=== PATIENT | female | born 1995 | race Caucasian/White ===

== ENCOUNTER 2017-10-25 12:58 | Observation (INO) | payer MEDICAID ==
[2017-10-25] MEDS ORDERED: Acetaminophen 325 MG Tab PO ONE (15:12)
[2017-10-25] MEDS ORDERED: Acetaminophen 325 MG Tab PO PRN (15:52)
[2017-10-25] MEDS ORDERED: Ondansetron 4 MG Tab.DIS PO PRN (15:53)
[2017-10-25] MEDS ORDERED: Magnesium Sulfate/Water 2 GM in Premix Bag 1 BAG IV ONE (19:40)
[2017-10-25] MEDS ORDERED: Magnesium Sulfate/Water 40 GM/1,000 ML BAG ONE (19:40)
[2017-10-25] MEDS ORDERED: Magnesium Sulfate/Water 50 ML ONE (19:40)
[2017-10-25] MEDS ORDERED: Magnesium Sulfate/Water 100 ML ONE (19:40)
[2017-10-25] MEDS ORDERED: Magnesium Sulfate/Water 4 GM in Premix Bag 1 BAG IV ONE (19:40)
[2017-10-25] MEDS ORDERED: Lactated Ringers 1,000 ML ONE (19:41)
[2017-10-25] MEDS ORDERED: Lactated Ringers 1,000 ML IV SCH (20:15)
[2017-10-25] MEDS ORDERED: Magnesium Sulfate/Water 40 GM/1,000 ML BAG IV SCH (20:45)
--- NOTE | 2017-10-25 22:14 | PCM.LDHP ---
L&D History of Present Illness - General Date of Service: 10/25/17 Admit Problem/Dx: Patient Status Order with Admit Dx/Problem 10/25/17 13:10 Patient Status [ADT] Routine 10/25/17 15:50 Patient Status [ADT] Routine Admission Diagnosis/Problem Admission Diagnosis/Problem complications Source of Information: Patient History Limitations: Reports: No Limitations - History of Present Illness Introduction:: 22 year old female at 35w2 here from [place] for a second opinion after being diagnosed there with mild pre-ecclampsia. Review of records reveals that she had normal blood pressures until 33 weeks of at which point she had some mild range pressures in clinic with occasional blood pressures in the 150/100s range. Labetolol was initiated at that time and plans were made for 37 week delivery. Her blood pressures became harder to control on labetolol and they increased the dose. Additionally she started having visual changes and headaches. BMZ Saturday and Saturday of this week. Otherwise she has had uncomplicated care. Pain Score: 7 Improves with: Reports: None Worsens with: Reports: None Associated Symptoms: Reports: N - Related Data Allergies/Adverse Reactions: Allergies Allergy/AdvReac Type Severity Reaction Status Date / Time No Known Allergies Allergy Verified 10/17/17 23:04 CDT Home Medications: Home Meds PNV #116/Iron Fumarate/FA/DHA [Expecta Combo Pack] 1 tab PO DAILY 10/02 [History] Ferrous Sulfate [Ferosul] 1 tab PO DAILY 10/17/17 [History] Past Medical History Cardiovascular History: Reports: Other (See Below) Other Cardiovascular History: Mitral valve prolapse [employer] History: Reports: Endometriosis, Social & Family History - Family History Musculoskeletal: Reports: Muscular Dystrophy - Tobacco Use Smoking Status *Q: Former Smoker Years of Tobacco use: 5 Used Tobacco, but Quit: Yes Month/Year Tobacco Last Used: October 2016 Second Hand Smoke Exposure: No - Caffeine Use Caffeine Use: Reports: None - Recreational Drug Use Recreational Drug Use: No H&P Review of Systems - Review of Systems: Review Of Systems: See Below General: Reports: No Symptoms HEENT: Reports: No Symptoms Pulmonary: Reports: No Symptoms Cardiovascular: Reports: No Symptoms Gastrointestinal: Reports: No Symptoms Genitourinary: Reports: No Symptoms Musculoskeletal: Reports: No Symptoms Skin: Reports: No Symptoms Psychiatric: Reports: No Symptoms Neurological: Reports: No Symptoms Hematologic/Lymphatic: Reports: No Symptoms Immunologic: Reports: No Symptoms L&D Exam - Exam Exam: See Below - Vital Signs Vital Signs: Last Vital Signs Temp Pulse 109 H 10/25/17 15:35 Resp 17 10/25/17 18:01 BP 157/87 H 10/25/17 18:01 Pulse Ox 96 10/25/17 13:31 Weight: 68.719 kg - OB Specific Fundal Height In cm: 35 Contraction Intensity: Irritability Presentation: Vertex - Exam General: Alert, Oriented HEENT: PERRLA, Conjunctiva Clear, EACs Clear, EOMI, Hearing Intact, Mucosa Moist & [place], Nares Patent, Normal Nasal Septum, Posterior Pharynx Clear, TMs Clear Neck: Supple, Trachea Midline Lungs: Clear to Auscultation, Normal Respiratory Effort Cardiovascular: Regular Rate, Regular Rhythm GI/Abdominal Exam: Normal Bowel Sounds, Soft, Non-Tender, No Organomegaly, No Distention, No Abnormal Bruit, No Mass, Pelvis Stable Rectal Exam: Normal Exam, Normal Rectal Tone Genitourinary: Normal external exam, Normal bimanual exam, Normal speculum exam Back Exam: Normal Inspection, Full Range of Motion Extremities: Normal Inspection, Normal Range of Motion, Non-Tender, No Pedal Edema, Normal Capillary Refill Skin: Warm, Dry, Intact Neurological: Cranial Nerves Intact, Reflexes Equal Bilateral Psychiatric: Alert, Normal Affect, Normal Mood - Patient Data Lab Results Last 24 hrs: Laboratory Results - last 24 hr 10/25/17 10/25/17 10/25/17 Range/Units 13:30 14:00 14:00 WBC 11.76 H (3.98-10.04) K/mm3 RBC 3.46 L (3.98-5.22) M/mm3 Hgb 10.1 L (11.2-15.7) gm/L Hct 30.6 L (34.1-44.9) % MCV 88.4 (79.4-94.8) fl MCH 29.2 (25.6-32.2) pg MCHC 33.0 (32.2-35.5) g/dl RDW Std Deviation 44.1 (36.4-46.3) fL Plt Count 281 (182-369) K/mm3 MPV 9.5 (9.4-12.3) fl Neut % (Auto) 68.9 (34.0-71.1) % Lymph % (Auto) 16.0 L (19.3-51.7) % [place] % (Auto) 11.6 (4.7-12.5) % Eos % (Auto) 1.2 (0.7-5.8) Baso % (Auto) 0.3 (0.1-1.2) % Neut # (Auto) 8.11 H (1.56-6.13) K/mm3 Lymph # (Auto) 1.88 (1.18-3.74) K/mm3 [place] # (Auto) 1.37 H (0.24-0.36) K/mm3 Eos # (Auto) 0.14 (0.04-0.36) K/mm3 Baso # (Auto) 0.03 (0.01-0.08) K/mm3 Manual Slide Review Abnormal smear BUN 4 L (7-18) mg/dL Creatinine 0.7 (0.55-1.02) mg/dL Est Cr Clr Drug Dosing 102.51 mL/min Estimated GFR (MDRD) > 60 (>60) mL/min Uric Acid 5.1 (2.6-6.0) mg/dL AST 18 (15-37) U/L ALT 20 (14-59) U/L Lactate Dehydrogenase 127 (81-234) U/L Urine Color Yellow (Yellow) Urine Appearance Clear (Clear) Urine pH 7.0 (5.0-8.0) Ur Specific [place] 1.020 (1.005-1.030) Urine Protein 1+ H (Negative) Urine Glucose (UA) Negative (Negative) Urine Ketones Negative (Negative) Urine Occult Blood Negative (Negative) Urine Nitrite Negative (Negative) Urine Bilirubin Negative (Negative) Urine Urobilinogen 0.2 (0.2-1.0) Ur Leukocyte Esterase Negative (Negative) Urine RBC 0-5 (0-5) /hpf Urine WBC 0-5 (0-5) /hpf Ur Epithelial Cells 30-40 H (0-5) /hpf Urine Bacteria Few (FEW) /hpf Urine Mucus Not seen (FEW) /hpf Result Diagrams: 10/25/17 14:00 10/25/17 14:00 Problem List Initiated/Reviewed/Updated: Yes Orders Last 24hrs: Active Orders 24 hr Category Date Time Status Patient Status [ADT] Routine ADT 10/25/17 15:50 Active Bedrest [RC] ASDIRECTED Care 10/25/17 19:40 Active Non Stress Test [RC] QSHIFT Care 10/25/17 13:10 Active Ready for Discharge [RC] PER UNIT ROUTINE Care 10/25/17 22:08 Ordered Vital Signs [RC] ASDIRECTED Care 10/25/17 19:40 Active Vital Signs [RC] Q2HR Care 10/25/17 13:10 Active Regular Diet [DIET] Diet 10/25/17 Dinner Active UA W/MICROSCOPIC [URIN] Stat Lab 10/25/17 13:30 Ordered Acetaminophen [Tylenol] Med 10/25/17 15:52 Active 650 mg PO Q6H PRN Lactated Ringers [Ringers, Lactated] 1,000 ml Med 10/25/17 20:15 Active IV ASDIRECTED Magnesium Sulfate/Water [Magnesium Sulfate 40 GM in Med 10/25/17 20:45 Active Water 1000 ML] 40 gm in 1,000 ml IV ASDIRECTED Ondansetron [Zofran ODT] Med 10/25/17 15:53 Active 4 mg PO Q4H PRN Blood Pressure [OM.PC] ASDIRECTED Oth 10/25/17 19:45 Ordered Blood Pressure [OM.PC] Routine Oth 10/25/17 15:53 Ordered Deep Tendon Reflexes [WOMSER] ASDIRECTED Oth 10/25/17 19:45 Ordered PIH Panel [OM.PC] Stat Oth 10/25/17 13:21 Ordered Resuscitation Status Routine Resus Stat 10/25/17 13:10 Ordered Medication Orders Acetaminophen (Tylenol) 650 mg PO Q6H PRN PRN Reason: Headache Lactated Ringer's (Ringers, Lactated) 1,000 mls @ 50 mls/hr IV ASDIRECTED VI Magnesium Sulfate (Magnesium Sulfate 40 Gm In Water 1000 Ml) 40 gm in 1,000 mls @ 50 mls/hr IV ASDIRECTED VI Last Admin: 10/25/17 20:47 Dose: 50 mls/hr Ondansetron HCl (Zofran Odt) 4 mg PO Q4H PRN PRN Reason: Nausea/Vomiting Assessment/Plan Comment:: 22 year old with pre-ecclampsia and worsening symptoms despite labetolol. Admitted initially for observation and plan to see how symptoms progress. Headache and visual changes worsened significantly so decision to transfer to [facility]. Magnesium sulfate 4gm bolus then 2gm/hr.
== END 2017-10-25 21:00 ==
LOC: JD.OBCHECK 12:58 → JD.OB 13:00 → JD.OBCHECK 15:50
PROVIDERS: ADMIT Obstetrics & Gynecology; ATTEND Obstetrics & Gynecology
DX: O14.03 Mild to moderate pre-eclampsia, third trimester (principal); Z3A.33 33 weeks gestation of pregnancy; Z87.891 Personal history of nicotine dependence; Z79.899 Other long term (current) drug therapy
CPT/HCPCS: 36415; 59025; 81001; 82565; 83615; 84450; 84460; 84520; 84550; 85025; A9270; J3475; J7120